=== PATIENT | female | born 1995 | race Caucasian/White ===

== ENCOUNTER 2024-10-30 01:00 | Emergency (ER) | payer MEDICAID ==
[~2024-10-30] VITALS: Ht 160 cm; Wt 73.0 kg
[2024-10-30 01:06] VITALS: O2SAT 100
[2024-10-30 01:08] VITALS: BP 110/53; PULSE 62; RESP 18; TEMP 36.7; O2SAT 98
== END 2024-10-30 04:11 | disposition left against medical advice (07) ==
LOC: ER 01:21
DX: H92.01 Otalgia, right ear (principal); Z53.21 Procedure and treatment not carried out due to patient leaving prior to being seen by health care provider